=== PATIENT | male | born 1950 | race Two or more races ===

== ENCOUNTER 2016-07-15 18:35 | Emergency (ER) | payer OTHER ==
[2016-07-15 19:44] LABS: ABSOLUTE NEUTROPHIL COUNT 11.7 K/mm3 (1.8-7.7); BASO % 0.1 % (0.2-1.0); EOS # 0.1 (0.0-0.5); EOS % 0.5 % (0.9-2.9); HEMATOCRIT 47.1 % (32.0-52.0); HEMOGLOBIN 15.4 gm/l (14.0-18.0); IMM NEUT # 0.1 K/mm3 (0-0.2); IMM NEUT% 0.8 % (0-1); LYMPH # 0.9 (1.0-4.8); LYMPH % 6.7 % (15-45); MEAN CELL VOLUME 94.8 fl (80.0-94.0); MEAN CORPUSCULAR HGB CONC 32.7 g/dl (33.0-37.0); MEAN PLATELET VOLUME 9.6 fl (7.4-10.4); MONO % 7.1 % (4-12); NEUT % 84.8 % (43-75); PLATELET COUNT 336 K/mm3 (130-400); RED CELL DISTRIBUTION WIDTH 14.4 % (11.5-14.5)
[2016-07-15 19:55] LABS: ALB/GLOB RATIO 0.9 (>1.0); ALBUMIN 3.9 gm/dL (3.5-5.7); CALCIUM 9.1 mg/dL (8.6-10.3)
[2016-07-15] MEDS ORDERED: SODIUM CHLORIDE 0.9% 1,000 ML ONE (20:30)
[2016-07-15 20:34] LABS: URINE BILIRUBIN NEGATIVE (NEGATIVE); URINE BLOOD NEGATIVE (NEGATIVE); URINE GLUCOSE (UA) NEGATIVE (NEGATIVE); URINE LEUKOCYTE ESTERASE NEGATIVE (NEGATIVE); URINE NITRITE NEGATIVE (NEGATIVE); URINE UROBILINOGEN NORMAL (0-1 mg/dl)
[2016-07-15 20:36] LABS: URINE PROTEIN 1+ (NEGATIVE)
[2016-07-15 20:39] LABS: URINE APPEARANCE CLEAR; URINE COLOR YELLOW
[2016-07-15 20:41] LABS: URINE BACTERIA 0; URINE EPITHELIAL CELLS FEW /hpf; URINE RBC 0-1 /hpf; URINE WBC NEG /hpf
== END 2016-07-15 23:30 | disposition short-term general hospital (02) ==
LOC: ED 18:35
DX: I21.4 Non-ST elevation (NSTEMI) myocardial infarction (principal); R55 Syncope and collapse; R91.8 Other nonspecific abnormal finding of lung field; S22.43XD Multiple fractures of ribs, bilateral, subsequent encounter for fracture with routine healing; B20 Human immunodeficiency virus [HIV] disease; F17.210 Nicotine dependence, cigarettes, uncomplicated; Z85.828 Personal history of other malignant neoplasm of skin; X58.XXXD Exposure to other specified factors, subsequent encounter
CPT/HCPCS: 85379; 85025; 80053; 80307; 84484 ×2; 81001; 71260; 99285 ×2; 96360; 93005; J7030; Q9967